=== PATIENT | male | born 1945 | race African-American/Black ===

== ENCOUNTER 2020-12-23 15:36 | Emergency (ER) | payer MEDICARE, MEDICAID ==
[~2020-12-23] VITALS: Ht 182.9 cm; Wt 78.0 kg
[2020-12-23] MEDS ORDERED: VANCOMYCIN 1 G PREMIX 200 ML IV ONE (16:30)
[2020-12-23] MEDS ORDERED: PIPERACILLIN/TAZ 3.375G PREMIX 50 ML IV ONE (16:30)
[2020-12-23] MEDS ORDERED: SODIUM CHLORIDE 0.9% 1,000 ML IV ONE (16:30)
[2020-12-23 16:55] LABS: BASOPHILS % 0.2 % (0.0-2.0); EOSINOPHILS % 0.6 % (0.0-5.0); HEMATOCRIT. 36.1 % (42.0-52.0); HEMOGLOBIN. 12.3 g/dL (14.0-18.0); MEAN CORPUSCULAR HEMOGLOBIN 32.4 pg (28.0-32.0); MEAN CORPUSCULAR VOLUME 94.7 fL (80.0-94.0); MEAN PLATELET VOLUME 7.6 fl (7.4-10.4); MONOCYTES % 8.5 % (2.0-8.0); NEUTROPHILS % 79.7 % (40.0-76.0); PLATELET 203 x1000/uL (130-400); RED BLOOD CELL COUNT 3.81 mill/uL (4.7-6.1); RED CELL DISTRIBUTION WIDTH 13.9 % (11.6-14.6)
[2020-12-23 17:02] LABS: CHLORIDE 111 mEq/L (98-107)
[2020-12-23 17:04] LABS: INR 1.2; PROTHROMBIN TIME 12.4 sec (9.6-11.0)
[2020-12-23 17:06] LABS: ETHANOL BLOOD < 10 mg/dL
[2020-12-23 17:14] VITALS: BP 96/51
[2020-12-23] MEDS ORDERED: GUAIFENESIN 200MG/10ML SUGAR FREE UDC PO PRN (18:15)
[2020-12-23] MEDS ORDERED: SODIUM CHLORIDE 0.9% 1,000 ML IV SCH (18:15)
[2020-12-23] MEDS ORDERED: ONDANSETRON HCL 4MG/2ML INJ IV PRN (18:15)
[2020-12-23] MEDS ORDERED: DOCUSATE SODIUM 100MG CAPSULE PO PRN (18:15)
[2020-12-23] MEDS ORDERED: MAGNESIUM/ALUMINUM HYDROXIDE/SIMETHICONE 30ML UDC PO PRN (18:15)
== END 2020-12-23 18:05 | disposition left against medical advice (07) ==
LOC: ER 15:36 → EDBEDREQSVC 18:05 → ER 18:05 → EDBEDREQ 18:09 → ENRESERV 19:39 → CANRESERV 19:39 → CANBEDREQ 22:06
DX: I95.9 Hypotension, unspecified (principal); R42 Dizziness and giddiness; I11.0 Hypertensive heart disease with heart failure; I50.9 Heart failure, unspecified
CPT/HCPCS: 36415; 71045; 80053; 80320; 82962; 83605; 83880; 84145; 84484; 85025; 85610; 86850; 86900; 86901; 87040; 93005; 96360; 99285; J2543; J3370; J7030; G0480